=== PATIENT | male | born 1980 | race African-American/Black ===

== ENCOUNTER 2017-03-15 13:09 | Emergency (ER) | payer SELFPAY ==
[~2017-03-15] VITALS: Ht 182.9 cm; Wt 78.0 kg
[2017-03-15] MEDS ORDERED: PIPERACILLIN/TAZ 3.375G PREMIX 50 ML IV ONE (15:15)
[2017-03-15] MEDS ORDERED: SODIUM CHLORIDE 0.9% 1,000 ML IV ONE (15:15)
[2017-03-15 15:33] LABS: BASOPHILS % 1.1 % (0.0-2.0); EOSINOPHILS % 1.6 % (0.0-5.0); HEMATOCRIT. 36.6 % (42.0-52.0); HEMOGLOBIN. 12.4 g/dL (14.0-18.0); LYMPHOCYTES % 18.8 % (20.0-50.0); MEAN CORPUSCULAR HEMOGLOBIN 29.6 pg (28.0-32.0); MEAN CORPUSCULAR HGB CONC 33.8 g/dL (31.0-37.0); MEAN CORPUSCULAR VOLUME 87.7 fL (80.0-94.0); MEAN PLATELET VOLUME 7.4 fl (7.4-10.4); MONOCYTES % 6.5 % (2.0-8.0); PLATELET 282 x1000/uL (130-400); RED BLOOD CELL COUNT 4.17 mill/uL (4.7-6.1); RED CELL DISTRIBUTION WIDTH 13.7 % (11.6-14.6); WHITE BLOOD COUNT 8.3 x1000/uL (4.5-11.0)
[2017-03-15 15:41] LABS: INR 1.1; PROTHROMBIN TIME 11.2 sec
[2017-03-15 15:42] LABS: ANION GAP 11; CARBON DIOXIDE 27 mEq/L (21-32); CHLORIDE 105 mEq/L (98-107); INDEX HEMOLYSI 1 (1-3); INDEX ICTERIC 1 (1-4); INDEX LIPEMIC 1 (1-3); UREA NITROGEN BLOOD 14 mg/dL (7-21); eGFR > 60 mL/min (>60)
[2017-03-15] MEDS ORDERED: CEPHALEXIN 500MG CAPSULE PO ONE (16:15)
[2017-03-15] MEDS ORDERED: SULFAMETHOXAZOLE/TRIMETHOPRIM 800/160MG TABLET PO ONE (16:15)
[2017-03-15] MEDS ORDERED: ACETAMINOPHEN WITH CODEINE 300/30MG TABLET PO ONE (16:15)
[2017-03-15 16:51] VITALS: BP 120/72
== END 2017-03-15 16:51 | disposition home or self-care (01) ==
LOC: ER 13:09
DX: L03.115 Cellulitis of right lower limb (principal); F17.210 Nicotine dependence, cigarettes, uncomplicated; F12.10 Cannabis abuse, uncomplicated
CPT/HCPCS: 36415; 80048; 85025; 85610; 87040; 87186; 99284; J2543; J7030

== ENCOUNTER 2018-06-09 16:32 | Emergency (ER) | payer SELFPAY ==
[~2018-06-09] VITALS: Ht 180.3 cm; Wt 81.4 kg
[2018-06-09 16:52] VITALS: BP 118/65
== END 2018-06-09 19:30 | disposition left against medical advice (07) ==
LOC: ER 17:49
DX: R51 Headache (principal); Z53.21 Procedure and treatment not carried out due to patient leaving prior to being seen by health care provider

== ENCOUNTER 2021-07-06 20:50 | Inpatient (IN) | payer OTHER ==
[~2021-07-06] VITALS: Ht 180.3 cm; Wt 76.5 kg
[2021-07-06] MEDS ORDERED: NITROGLYCERIN 0.4MG TABLET SL SL PRN (22:45)
[2021-07-06] MEDS ORDERED: ASPIRIN 81MG TABLET PO ONE (22:45)
[2021-07-06] MEDS ORDERED: SODIUM CHLORIDE 0.9% 1,000 ML IV ONE (22:45)
[2021-07-06 23:47] LABS: BASOPHILS % 0.7 % (0.0-2.0); EOSINOPHILS % 3.9 % (0.0-5.0); HEMATOCRIT. 36.7 % (42.0-52.0); HEMOGLOBIN. 12.4 g/dL (14.0-18.0); LYMPHOCYTES % 19.6 % (20.0-50.0); MEAN CORPUSCULAR VOLUME 88.7 fL (80.0-94.0); MEAN PLATELET VOLUME 7.4 fl (7.4-10.4); MONOCYTES % 6.8 % (2.0-8.0); PLATELET 308 x1000/uL (130-400); RED BLOOD CELL COUNT 4.13 mill/uL (4.7-6.1); RED CELL DISTRIBUTION WIDTH 14.2 % (11.6-14.6)
[2021-07-06 23:53] LABS: CHLORIDE 107 mEq/L (98-107)
[2021-07-06 23:57] LABS: D-DIMER 4.38 mg/L FEU (<0.50); PARTIAL THROMBOPLASTIN TIME 26.8 sec (23.4-31.0); PROTHROMBIN TIME 10.6 sec (9.6-11.0)
[2021-07-07 00:13] LABS: CREATINE KINASE 2372 IU/L (39-308)
[2021-07-07] MEDS ORDERED: SODIUM CHLORIDE 0.9% 1,000 ML IV ONE (00:30)
[2021-07-07] MEDS ORDERED: IOHEXOL-350 100 ML BOTTLE ONE (06:14)
[2021-07-07] MEDS ORDERED: IPRATROPIUM/ALBUTEROL 0.5-3(2.5)MG/3ML NEB HHN PRN (09:45)
[2021-07-07] MEDS ORDERED: ACETAMINOPHEN 325MG TABLET PO PRN (09:45)
[2021-07-07] MEDS ORDERED: ONDANSETRON HCL 4MG/2ML INJ IV PRN (09:45)
[2021-07-07 10:50] VITALS: BP 136/76
[2021-07-07 10:58] VITALS: BP 136/76
[2021-07-07 12:00] VITALS: BP 131/70
[2021-07-07] MEDS: SODIUM CHLORIDE 0.9% 1,000 ML IV SCH (13:30)
[2021-07-07 16:00] VITALS: BP 141/72
[2021-07-07 16:03] LABS: *AMPHETAMINES SCREEN URINE NEGATIVE (NEGATIVE); *BARBITURATES SCREEN URINE NEGATIVE (NEGATIVE); *BENZODIAZEPINES SCREEN URINE NEGATIVE (NEGATIVE); *COCAINE SCREEN URINE NEGATIVE (NEGATIVE); METHADONE URINE SCREEN NEGATIVE (NEGATIVE); OPIATES URINE SCREEN NEGATIVE (NEGATIVE)
[2021-07-07 16:04] LABS: CANNABINOID URINE SCREEN NEGATIVE (NEGATIVE)
[2021-07-07 16:05] LABS: PHENCYCLIDINE URINE SCREEN NEGATIVE (NEGATIVE)
[2021-07-07 20:00] VITALS: BP 106/70
[2021-07-08] VITALS: BP 128/71
[2021-07-08 04:00] VITALS: BP 106/58
[2021-07-08] MEDS: SODIUM CHLORIDE 0.9% 1,000 ML IV SCH (04:50)
[2021-07-08 08:00] VITALS: BP 114/70
[2021-07-08] MEDS ORDERED: ASPIRIN 81MG TABLET PO SCH (09:00)
[2021-07-08 12:00] VITALS: BP 94/58
[2021-07-08 12:53] VITALS: BP 98/62
== END 2021-07-08 14:18 | disposition home or self-care (01) | DRG 203 ==
LOC: ER 20:50 → MICUSO 07-07 00:28 → 6WST 07-07 07:51
PROVIDERS: ADMIT Internal Medicine; ATTEND Internal Medicine
DX: M94.0 Chondrocostal junction syndrome [Tietze] (principal); K22.0 Achalasia of cardia; M62.82 Rhabdomyolysis; Z20.822 Contact with and (suspected) exposure to COVID-19; F15.90 Other stimulant use, unspecified, uncomplicated; F17.210 Nicotine dependence, cigarettes, uncomplicated; Z60.2 Problems related to living alone; Z79.899 Other long term (current) drug therapy; Z71.51 Drug abuse counseling and surveillance of drug abuser; Z71.6 Tobacco abuse counseling
CPT/HCPCS: 36415; 71045; 71275; 80053; 80305; 82550; 83880; 84443; 84484; 85025; 85379; 87426; 93005; 93306; 99285; J7030; Q9967

== ENCOUNTER 2021-07-08 14:27 | Emergency (ER) | payer OTHER ==
[~2021-07-08] VITALS: Ht 180.3 cm; Wt 80.0 kg
[2021-07-08 14:39] VITALS: BP 121/72
[2021-07-08] MEDS ORDERED: ACETAMINOPHEN 325MG TABLET PO ONE (16:45)
[2021-07-08 17:17] LABS: EOSINOPHILS % 2.5 % (0.0-5.0); HEMATOCRIT. 37.6 % (42.0-52.0); HEMOGLOBIN. 12.8 g/dL (14.0-18.0); LYMPHOCYTES % 24.9 % (20.0-50.0); MEAN CORPUSCULAR HEMOGLOBIN 30.4 pg (28.0-32.0); MEAN CORPUSCULAR VOLUME 89.1 fL (80.0-94.0); MEAN PLATELET VOLUME 7.6 fl (7.4-10.4); NEUTROPHILS % 62.6 % (40.0-76.0); PLATELET 313 x1000/uL (130-400); RED BLOOD CELL COUNT 4.22 mill/uL (4.7-6.1); RED CELL DISTRIBUTION WIDTH 14.1 % (11.6-14.6)
[2021-07-08 17:23] LABS: CHLORIDE 106 mEq/L (98-107)
[2021-07-08 17:26] LABS: CLARITY URINE CLEAR (CLEAR); COLOR URINE YELLOW (YELLOW); KETONES URINE NEGATIVE (NEGATIVE); LEUKOCYTE ESTERASE URINE NEGATIVE (NEGATIVE); NITRITE URINE NEGATIVE (NEGATIVE); OCCULT BLOOD URINE NEGATIVE (NEGATIVE); PROTEIN URINE NEGATIVE (NEGATIVE); SPECIFIC GRAVITY URINE 1.017 (1.005-1.030); UROBILINOGEN URINE 0.2 E.U./dL (0.2-1.0)
[2021-07-08 17:27] LABS: ETHANOL BLOOD < 10 mg/dL
[2021-07-08 17:40] LABS: *AMPHETAMINES SCREEN URINE NEGATIVE (NEGATIVE); *BARBITURATES SCREEN URINE NEGATIVE (NEGATIVE); *BENZODIAZEPINES SCREEN URINE NEGATIVE (NEGATIVE); *COCAINE SCREEN URINE NEGATIVE (NEGATIVE); METHADONE URINE SCREEN NEGATIVE (NEGATIVE); OPIATES URINE SCREEN NEGATIVE (NEGATIVE)
[2021-07-08 17:41] LABS: CANNABINOID URINE SCREEN NEGATIVE (NEGATIVE); PHENCYCLIDINE URINE SCREEN NEGATIVE (NEGATIVE)
[2021-07-08 17:43] LABS: CREATINE KINASE 1072 IU/L (39-308)
== END 2021-07-08 18:34 | disposition home or self-care (01) ==
LOC: ER 14:27
DX: M62.82 Rhabdomyolysis (principal); F15.10 Other stimulant abuse, uncomplicated
CPT/HCPCS: 36415; 80053; 80305; 80320; 81003; 82550; 85025; 99283; G0480

== ENCOUNTER 2021-07-30 16:01 | Emergency (ER) | payer OTHER ==
[~2021-07-30] VITALS: Ht 177.8 cm; Wt 80.0 kg
[2021-07-30 16:19] VITALS: BP 148/78
[2021-07-30] MEDS ORDERED: IBUP-2029 MT (20:57)
[2021-07-30] MEDS ORDERED: CEPH500C2 MT (20:57)
== END 2021-07-30 17:06 | disposition left against medical advice (07) ==
LOC: ER 16:01
DX: Z53.21 Procedure and treatment not carried out due to patient leaving prior to being seen by health care provider (principal)

== ENCOUNTER 2021-07-30 19:02 | Emergency (ER) | payer OTHER ==
[~2021-07-30] VITALS: Ht 180.3 cm; Wt 89.0 kg
[2021-07-30 19:11] VITALS: BP 119/80
[2021-07-30] MEDS ORDERED: IBUPROFEN 600MG TABLET PO ONE (20:00)
[2021-07-30] MEDS ORDERED: TETANUS, DIPHTHERIA, PERTUSSIS VAC/PF 0.5ML (>10YR OLD) IM ONE (20:00)
[2021-07-30] MEDS ORDERED: BACITRACIN ZINC OINT UDPKT TOP ONE (20:00)
[2021-07-30] MEDS ORDERED: LIDOCAINE HCL/EPINEPHRINE 1%-EPI 1:100,000 20 ML VIAL INFIL ONE (20:00)
[2021-07-30] MEDS ORDERED: CEPH500C2 MT (20:57)
[2021-07-30] MEDS ORDERED: IBUP-2029 MT (20:57)
== END 2021-07-30 21:14 | disposition home or self-care (01) ==
LOC: ER 19:02
DX: S81.812A Laceration without foreign body, left lower leg, initial encounter (principal); W27.0XXA Contact with workbench tool, initial encounter; Y93.89 Activity, other specified; Y92.89 Other specified places as the place of occurrence of the external cause
CPT/HCPCS: 99283; J3490